=== PATIENT | male | born 1970 ===

== ENCOUNTER 2023-01-12 22:04 | Emergency (ER) | payer SELFPAY ==
[2023-01-12] MEDS ORDERED: Oxymetazoline HCl 0.05% (30 ML BOT) ONE (22:41)
[2023-01-12 23:42] LABS: Hemoglobin 9.3 g/dL (14.0-18.0); Mean Corpuscular HGB CONC 35.6 g/dL (32.0-36.0); Red Blood Cell (RBC) Count 2.51 mill/uL (4.70-6.10)
[2023-01-12 23:49] LABS: INR-International Normal Ratio 1.3; Prothrombin Time 17.1 sec (12.0-14.7)
[2023-01-13 00:03] LABS: #Basophils 0.1 thou/uL (0.0-0.2); #Lymphocytes 2.9 thou/uL (1.20-3.40); #Monocytes 0.4 thou/uL (0.11-0.59); #Neutrophils 2.6 thou/uL (1.40-6.50); %Basophils 1.2 % (0.0-1.0); %Eosinophils 0.5 % (0.0-10.0); %Lymphocytes 48.5 % (21.0-51.0); %Monocytes 6.4 % (0.0-10.0); %Neutrophils 43.3 % (42.0-75.0); MDiff Complete? YES; Macrocytosis MODERATE=16-30 cells (100X) (0-5/hpf); Mean Platelet Volume 7.9 fL (7.4-10.4); Ovalocytes SLIGHT = 2-5 cells (100X) (0-1/hpf); Platelet Count 90 10x3/uL (130-400); Platelet Morphology Comment Appears Decreased; Target Cells SLIGHT = 2-5 cells (100X) (0-1/hpf)
== END 2023-01-13 00:13 | disposition home or self-care (01) ==
LOC: ERS 22:04
DX: R04.0 Epistaxis (principal); I10 Essential (primary) hypertension
CPT/HCPCS: 85025; 85610; 85730; 99283